=== PATIENT | female | born 1990 | race Caucasian/White ===

== ENCOUNTER → 2017-05-18 | Outpatient (CLI) | payer OTHER ==
--- NOTE | 2017-05-18 22:36 | EKG REPORT ---
SEVERITY:- NORMAL ECG - SINUS RHYTHM : Confirmed by: Babak Chisholm 18-May-2017 22:35:25
== END ==
LOC: OD 10:44
PROVIDERS: ATTEND Advanced Practice Midwife
DX: Z34.82 Encounter for supervision of other normal pregnancy, second trimester (principal); R42 Dizziness and giddiness
CPT/HCPCS: 93005; 93010

== ENCOUNTER 2018-09-17 20:56 | Inpatient (IN) | payer OTHER ==
[2018-09-17] MEDS ORDERED: OXYTOCIN/NORMAL SALINE 20 UNIT/1,000 ML RTUINJ ONE (21:21)
[2018-09-17] MEDS ORDERED: LIDOCAINE 1% INJ-PF (10 MG/ML) 30 ML SDV ONE (21:21)
[2018-09-17] MEDS ORDERED: OXYTOCIN 10 UNIT/ML VIAL ONE (21:21)
[2018-09-17] MEDS ORDERED: MISOPROSTOL 0.2 MG TABLET ONE (21:21)
[2018-09-17 22:13] LABS: ABSOLUTE BASOPHILS # (AUTO) 0.1 10^3/uL (0.0-0.2); ABSOLUTE EOSINOPHILS # (AUTO) 0.2 10^3/uL (0.0-0.6); ABSOLUTE LYMPHOCYTES (AUTO) 2.8 10^3/uL (0.5-4.7); ABSOLUTE MONOCYTES (AUTO) 1.2 10^3/uL (0.1-1.4); ABSOLUTE NEUT (AUTO) 13.5 10^3/uL (1.7-8.2); BASOPHILS % (AUTO) 0.5 % (0-2); EOSINOPHILS % (AUTO) 0.9 % (0-6); HEMATOCRIT 29.2 % (36.0-47.0); HEMOGLOBIN 9.6 g/dL (12.0-15.5); LYMPHOCYTES % (AUTO) 15.7 % (13-45); MEAN CORPUSCULAR HEMOGLOBIN 26.8 pg (27.0-33.4); MEAN CORPUSCULAR VOLUME 81 fl (80-97); PLATELET COUNT 374 10^3/uL (150-450); RED BLOOD COUNT 3.59 10^6/uL (3.72-5.28); RED CELL DISTRIBUTION WIDTH 16.7 % (11.5-14.0); SEGMENTED NEUTROPHILS % (AUTO) 75.9 % (42-78); TOTAL CELLS COUNTED % (AUTO) 100 %; WHITE BLOOD COUNT 17.8 10^3/uL (4.0-10.5)
[2018-09-17] MEDS ORDERED: EPHEDRINE SULFATE INJ 50 MG/1 ML AMPULE ONE (22:13)
[2018-09-17] MEDS ORDERED: FENTANYL/BUPIVACAINE/NS/PF 300 MCG/150 ML RTUINJ EPI ONE (22:14)
[2018-09-17] MEDS ORDERED: BUPIVACAINE HCL 0.25 % INJ/PF (2.5 MG/1 ML) 30 ML VIAL ONE (22:14)
[2018-09-17 22:16] LABS: APPEARANCE,URINE CLOUDY; BILIRUBIN,URINE NEGATIVE (NEGATIVE); COLOR,URINE YELLOW; GLUCOSE, URINE NEGATIVE (NEGATIVE); KETONES,URINE NEGATIVE (NEGATIVE); LEUKOCYTE ESTERASE,URINE SMALL (NEGATIVE); NITRITE,URINE NEGATIVE (NEGATIVE); PROTEIN,URINE NEGATIVE (NEGATIVE); URINE SPECIFIC GRAVITY 1.006; UROBILINOGEN,URINE NEGATIVE mg/dL (<2.0)
[2018-09-17 22:31] LABS: URINE AMPHETAMINES SCREEN NEGATIVE; URINE BARBITURATES SCREEN NEGATIVE; URINE BENZODIAZEPINES SCREEN NEGATIVE; URINE COCAINE SCREEN NEGATIVE; URINE MARIJUANA (THC) SCREEN NEGATIVE; URINE METHADONE SCREEN NEGATIVE; URINE PHENCYCLIDINE SCREEN NEGATIVE
--- NOTE | 2018-09-18 07:08 | Admission Physical ---
Datetime Report Generated by CPN: 09/18/2018 07:08 CURRENT ADMISSION Chief Complaint: Uterine Contractions Indication for Induction: Not Applicable Admit Impression : Term, Intrauterine Admit Plan: Initiate Labor Protocol ALLERGIES Medication Allergies: Yes Medication Allergies: latex (09/17/2018), advair OBSTETRICAL HISTORY EDC: 09/26/2018 00:00 : 6 Para: 2 Gestational Diabetes: No Rh Sensitization: No Incompetent Cervix: No ZEYAD: No Infertility: No ART Treatment: No Uterine Anomaly: No IUGR: No Hx Previous C/S: No Macrosomia: No Hx Loss/Stillborn: No PIH: No Hx : No Placenta Previa/Abruption: No Depression/PP Depression: No PTL/PROM: No Post Hemorrhage: No Obstetrical History Comments: G1 G2 G3 G4 G5 G6- current SEE RECORDS Alcohol: No Marijuana : No Cocaine: No Other Illicit Drugs: No Cigarettes: Current Everyday Smoker. [id number] Cigarette Frequency: 5 - 10 per day Advised to Stop: Yes MEDICAL HISTORY Diabetes: No Blood Transfusion: No Pulmonary Disease (Asthma, TB): Yes Breast Disease: No Hypertension: No Retail Operations Specialist Surgery: No Heart Disease: No Hosp/Surgery: No Autoimmune Disorder: No Anesthetic Complications: No Kidney Disease: No Abnormal Pap Smear: No Neuro/Epilepsy: No Psychiatric Disorders: No Other Medical Diseases: No Hepatitis/Liver Disease: No Significant Family History: No Varicosities/Phlebitis: No Trauma/Violence : No Thyroid Dysfunction: No Medical History Comments: history of asthma INFECTIOUS HISTORY Gonorrhea: No Genital Herpes: No Chlamydia: No Tuberculosis: No Syphilis: No Hepatitis: No HIV/AIDS Exposure: No Rash or Viral Illness: No HPV: No PHYSICAL EXAM General: Normal HEENT: Normal Neurologic: Normal Thyroid: Normal Heart: Normal Lungs: Normal Breast: Deferred Back: Normal Abdomen: Normal Genitourinary Exam: Normal Extremities: Normal DTRs: Normal Pelvic Type: Adequate FETUS A EGA: 38.6 PLANS FOR LABOR AND DELIVERY Labor and Delivery: Plan Pain Management: Epidural Feeding Preference: Formula Benefit of Breast Feed Discussed: Yes Circumcision: Yes INFORMED CONSENT Signature: with User ID: [email or web address]
[2018-09-18] MEDS ORDERED: MEASLES,MUMPS&RUBELLA VACC/PF 0.5 ML VIAL SUBCUT PRN (07:57)
[2018-09-18] MEDS ORDERED: PROMETHAZINE HCL INJ 25 MG/1 ML VIAL IV PRN (07:57)
[2018-09-18] MEDS ORDERED: DIPHENHYDRAMINE HCL 25 MG CAPSULE PO PRN (07:57)
[2018-09-18] MEDS ORDERED: DIPH/PERTUSS(ACELL)/TETANUS VAC/PF 0.5 ML SYR (>=10YO) IM PRN (07:57)
[2018-09-18] MEDS ORDERED: PROMETHAZINE HCL 25 MG TABLET PO PRN (07:57)
[2018-09-18] MEDS ORDERED: NA PHOS,M-B/NA PHOS,DI-BA (ADULT) 133 ML ENEMA PR PRN (07:57)
[2018-09-18] MEDS ORDERED: ZOLPIDEM TARTRATE 5 MG TABLET PO PRN (07:57)
[2018-09-18] MEDS ORDERED: PSEUDOEPHEDRINE HCL 30 MG TABLET PO PRN (07:57)
[2018-09-18] MEDS ORDERED: ACETAMINOPHEN 650 MG SUPP.RECT PR PRN (07:57)
[2018-09-18] MEDS ORDERED: OXYTOCIN/NORMAL SALINE 20 UNIT/1,000 ML RTUINJ IV PRN (07:57)
[2018-09-18] MEDS ORDERED: PROMETHAZINE HCL 25 MG SUPP.RECT PR PRN (07:57)
[2018-09-18] MEDS ORDERED: BENZOCAINE/MENTHOL AEROSOL SPRAY 56 ML TOP PRN (07:57)
[2018-09-18] MEDS ORDERED: MAGNESIUM HYDROXIDE SUSP 30 ML UDCUP PO PRN (07:57)
[2018-09-18] MEDS ORDERED: GLYCERIN/WITCH HAZEL LEAF 1 EACH MED..WIPE TP PRN (07:57)
[2018-09-18] MEDS ORDERED: DIBUCAINE 1% OINTMENT 56 GM TP PRN (07:57)
[2018-09-18] MEDS ORDERED: ACETAMINOPHEN WITH CODEINE #3 TABLET ONE (08:25)
[2018-09-18] MEDS ORDERED: IBUPROFEN 800 MG TABLET ONE (08:25)
[2018-09-18] MEDS ORDERED: MISOPROSTOL 0.2 MG TABLET ONE (08:26)
[2018-09-18] MEDS: ACETAMINOPHEN WITH CODEINE #3 TABLET PO PRN ×2 (08:28→21:01)
--- NOTE | 2018-09-18 09:39 | Delivery Summary ---
Del Sum A-C Datetime Report Generated by CPN: 09/18/2018 09:39 DELIVERY PERSONNEL DELIVERY PERSONNEL: [id number] Delivery Doctor:: Bob Rios MD Labor and Delivery Nurse:: Isabela Linares RNC Labor and Delivery Nurse:: Annette Yost RN Air Transportation Provider/TUBE BUILDER: Francesca White CNA II Additional Personnel: : Yi Rendon RN MATERNAL INFORMATION Delivery Anesthesia: Epidural Medications After Delivery: Pitocin Bolus-Please Comment; Cytotec 1000mcg Per Rectum/Vagina Meds After Delivery Comment: Pitocin 20 units/1000 ml NSS Maternal Complications: None LABOR SUMMARY EDC: 09/26/2018 00:00 No. Babies in Womb: 1 Attempted: No Labor Anesthesia: Epidural LABOR INFORMATION Reason for Induction: Not Applicable Onset of Labor: 09/18/2018 22:14 Complete Dilatation: 09/18/2018 07:19 Group B Beta Strep: negaitve MEMBRANES Membranes Rupture Method: Spontaneous Rupture of Membranes: 09/18/2018 07:16 Length of Rupture (hr): 0.50 Amniotic Fluid Color: Clear Amniotic Fluid Amount: Moderate Amniotic Fluid Odor: Normal STAGES OF LABOR Stage 1 hr: -14 Stage 1 min: -55 Stage 2 hr: 0 Stage 2 min: 27 Stage 3 hr: -143 Stage 3 min: -54 Total Time in Labor hr: -158 Total Time in Labor min: -22 VAGINAL DELIVERY Episiotomy: None Laceration #1: None Laceration Extension #1: N/A Laceration Repair: Not Applicable CSECTION DELIVERY Primary Indication: N/A CSection Incidence: N/A Labor: N/A Elective: N/A CSection Incision: N/A BABY A INFORMATION Delivery Date/Time: 09/18/2018 07:46 Method of Delivery: Vaginal Born in Route : No : N/A Forceps: N/A Vacuum Extraction: N/A Shoulder Dystocia : No PRESENTATION/POSITION BABY A Presentation: Cephalic Cephalic Presentation: Vertex Vertex Position: Right Occipital Anterior Breech Presentation: N/A PLACENTA INFORMATION BABY A Placenta Delivery Time : 09/12/2018 07:52 Placenta Method of Delivery: Spontaneous Placenta Status: Delivered SCORES BABY A Heart Rate 1 min: >100 bpm Resp Effort 1 min: Good Cry Reflex Irritability 1 min: Cough or Sneeze or Pulls Away Muscle Tone 1 min: Active Motion Color 1 min: Blue/Pale Resuscitation Effort 1 min: Tactile Stimulation SCORE 1 MIN: 8 Heart Rate 5 min: >100 bpm Resp Effort 5 min: Good Cry Reflex Irritability 5 min: Cough or Sneeze or Pulls Away Muscle Tone 5 min: Active Motion Color 5 min: Body [place], Extremities Blue Resuscitation Effort 5 min: Tactile Stimulation SCORE 5 MIN: 9 INFORMATION BABY A Gestational Age at Delivery: 38.6 Gestational Status: Early Term- 37- 38.6 Weeks Outcome : Liveborn Infant Condition : Stable Sex: Male IDENTIFICATION BABY A Verification Date/Time: 09/18/2018 08:32 ID Band Number: [id number] Mother's Name Verified: Yes RN Verifying Infant: Sautry Additional Verifying Personnel: S Brown TUBE BUILDER WEIGHT/LENGTH BABY A Birthweight (gm): 4011 Weight (lb): 8 Weight (oz): 13 Length (in): 20.50 Length (cm): 52.07 CORD INFORMATION BABY A No. Cord Vessels: 3 Nuchal Cord : N/A Nuchal Cord- Other: Waist Cord Blood Taken: Yes-For Storage (Mom's Blood type +) Infant Suction: None ASSESSMENT BABY A Infant Complications: None Physical Findings at Delivery: Within Normal Limits Skin to Skin: Yes Transferred To: Remains with Mother SIGNATURES Signature: with User ID: [email or web address]
[2018-09-18] MEDS: SENNOSIDES/DOCUSATE 8.6-50 MG 1 EACH TABLET PO SCH (10:49)
[2018-09-18] MEDS: DOCUSATE SODIUM 100 MG CAPSULE PO SCH ×2 (10:49→18:01)
[2018-09-18] MEDS: FERROUS SULFATE 325 MG TABLET PO SCH ×2 (10:49→18:00)
[2018-09-18] MEDS: PRENATAL VITAMIN W DHA CAPSULE PO SCH (10:49)
[2018-09-18] MEDS: FAMOTIDINE 20 MG TABLET PO SCH ×2 (10:49→21:01)
[2018-09-18] MEDS: PANTOPRAZOLE SODIUM 20 MG TABLET.DR PO SCH (10:49)
[2018-09-18] MEDS: IBUPROFEN 800 MG TABLET PO SCH ×2 (14:31→21:01)
[2018-09-19] MEDS: ACETAMINOPHEN WITH CODEINE #3 TABLET PO PRN (01:07)
[2018-09-19] MEDS: IBUPROFEN 800 MG TABLET PO SCH ×3 (06:30→21:09)
[2018-09-19 06:37] LABS: HEMATOCRIT 27.8 % (36.0-47.0); HEMOGLOBIN 9.1 g/dL (12.0-15.5); MEAN CORPUSCULAR HEMOGLOBIN 26.7 pg (27.0-33.4); MEAN CORPUSCULAR HGB CONC 32.9 g/dL (32.0-36.0); MEAN CORPUSCULAR VOLUME 81 fl (80-97); PLATELET COUNT 353 10^3/uL (150-450); RED BLOOD COUNT 3.42 10^6/uL (3.72-5.28); RED CELL DISTRIBUTION WIDTH 16.5 % (11.5-14.0); WHITE BLOOD COUNT 18.2 10^3/uL (4.0-10.5)
[2018-09-19] MEDS: FAMOTIDINE 20 MG TABLET PO SCH ×2 (10:15→21:09)
[2018-09-19] MEDS: DOCUSATE SODIUM 100 MG CAPSULE PO SCH ×2 (10:15→18:21)
[2018-09-19] MEDS: FERROUS SULFATE 325 MG TABLET PO SCH ×2 (10:15→18:21)
[2018-09-19] MEDS: SENNOSIDES/DOCUSATE 8.6-50 MG 1 EACH TABLET PO SCH (10:15)
[2018-09-19] MEDS: PANTOPRAZOLE SODIUM 20 MG TABLET.DR PO SCH (10:15)
[2018-09-19] MEDS: PRENATAL VITAMIN W DHA CAPSULE PO SCH (10:15)
--- NOTE | 2018-09-19 11:51 | PDOC PROGRESS REPORT ---
Subjective-OB Progress Note for:: 09/19/18 - PP Day #1, doing well, A+, Rubella Immune, bottlefeeding. May want to go home later on today if possible Physical Exam (OB) Vital Signs: Temp Pulse Resp BP Pulse Ox 97.9 F 58 L 15 118/74 98 09/19/18 08:03 09/19/18 08:03 09/19/18 08:03 09/19/18 08:03 09/19/18 08:03 Intake & Output 09/18/18 09/19/18 09/20/18 06:59 06:59 06:59 Intake Total 240 Balance 240 Weight 83.4 kg - PIH/Pre-Eclampsia DTR's: 2 + Clonus: Negative Headache: Absent Epigastric Pain: No Visual Changes: No - Lochia Lochia Amount: Scant < 10 ml Lochia Color: Rubra/Red - Abdomen Description: Soft, Round Hernia Present: No Fundal Description: Firm, Midline Fundal Height: u/u - u/2 - Respiratory Respiratory Status: No respiratory distress - Abdominal Inspection: Normal Distension: No distension - Genitourinary Genitourinary Note: voiding - Extremities Upper extremity: Normal inspection Lower extremities: Normal inspection - Neurological Cognition: Normal Orientation: AAOx4 - Psychological Associated symptoms: Normal affect, Normal mood - Skin Skin Temperature: Warm Skin Moisture: Dry Objective-Diagnostic Laboratory: 09/19/18 06:15 09/19/18 06:15 WBC 18.2 H RBC 3.42 L Hgb 9.1 L Hct 27.8 L MCV 81 MCH 26.7 L MCHC 32.9 RDW 16.5 H Plt Count 353 Assessment and Plan(PN) - Assessment and Plan (1) Anemia, iron deficiency Qualifiers: Iron deficiency anemia type: other iron deficiency Qualified Code(s): D50.8 - Other iron deficiency anemias Is this a current diagnosis for this admission?: Yes (2) Depression Qualifiers: Depression Type: depression during Trimester: third trimester Qualified Code(s): O99.343 - Other mental disorders complicating , third trimester; F32.9 - Major depressive disorder, single episode, unspecified Is this a current diagnosis for this admission?: Yes (3) Vaginal delivery Is this a current diagnosis for this admission?: Yes - Time Spent with Patient Time with patient: Less than 15 minutes Medications reviewed and adjusted accordingly: Yes - Disposition Anticipated Discharge: Home Within: within 24 hours
[2018-09-20] MEDS: IBUPROFEN 800 MG TABLET PO SCH ×3 (06:40→13:13)
[2018-09-20 08:08] VITALS: BP 145/81
[2018-09-20] MEDS: FAMOTIDINE 20 MG TABLET PO SCH (09:23)
[2018-09-20] MEDS: PRENATAL VITAMIN W DHA CAPSULE PO SCH (09:23)
[2018-09-20] MEDS: FERROUS SULFATE 325 MG TABLET PO SCH (09:23)
[2018-09-20] MEDS: PANTOPRAZOLE SODIUM 20 MG TABLET.DR PO SCH (09:23)
[2018-09-20] MEDS: DOCUSATE SODIUM 100 MG CAPSULE PO SCH (09:23)
[2018-09-20] MEDS: SENNOSIDES/DOCUSATE 8.6-50 MG 1 EACH TABLET PO SCH (09:23)
--- NOTE | 2018-09-20 10:19 | PDOC PROGRESS REPORT ---
Subjective-OB Progress Note for:: 09/20/18 Subjective: Doing well, no c/o,ready to go home Physical Exam (OB) Vital Signs: Temp Pulse Resp BP Pulse Ox 97.8 F 66 16 145/81 H 98 09/20/18 07:44 09/20/18 07:44 09/20/18 07:44 09/20/18 07:44 09/20/18 07:44 Intake & Output 09/19/18 09/20/18 09/21/18 06:59 06:59 06:59 Intake Total 240 650 Balance 240 650 - PIH/Pre-Eclampsia DTR's: 2 + Clonus: Negative Headache: Absent Epigastric Pain: No Visual Changes: No - Lochia Lochia Amount: Scant < 10 ml Lochia Color: Rubra/Red - Abdomen Description: Soft, Round Hernia Present: No Fundal Description: Firm Fundal Height: u/u - u/2 Objective-Diagnostic Laboratory: 09/19/18 06:15 Assessment and Plan(PN) - Assessment and Plan (1) Bipolar 1 disorder Is this a current diagnosis for this admission?: Yes (2) Anemia, iron deficiency Qualifiers: Iron deficiency anemia type: other iron deficiency Qualified Code(s): D50.8 - Other iron deficiency anemias Is this a current diagnosis for this admission?: Yes (3) Vaginal delivery Is this a current diagnosis for this admission?: Yes (4) Depression Qualifiers: Depression Type: depression during Trimester: third trimester Qualified Code(s): O99.343 - Other mental disorders complicating , third trimester; F32.9 - Major depressive disorder, single episode, unspecified Is this a current diagnosis for this admission?: Yes - Time Spent with Patient Time with patient: Less than 15 minutes Medications reviewed and adjusted accordingly: Yes - Disposition Anticipated Discharge: Home Within: within 24 hours
--- NOTE | 2018-09-20 10:23 | PDOC DISCHARGE SUMMARY ---
Final Diagnosis Discharge Date: 09/20/18 - Final Diagnosis (1) Bipolar 1 disorder Is this a current diagnosis for this admission?: Yes (2) Anemia, iron deficiency Is this a current diagnosis for this admission?: Yes (3) Vaginal delivery Is this a current diagnosis for this admission?: Yes Discharge Data - Discharge Medication Prescriptions: Ferrous Sulfate [Feosol 325 mg Tablet] 325 mg PO BID #60 tablet Ibuprofen [Motrin 800 mg Tablet] 800 mg PO Q8 #60 tablet Home Medications: Pantoprazole Sodium [Protonix] 20 mg PO DAILY 09/17/18 95/Iron Fum/Folic/Dha [ + Dha Combo Pack] 1 each PO DAILY 09/17/18 Ferrous Sulfate [Feosol 325 mg Tablet] 325 mg PO BID #60 tablet 09/20/18 Ibuprofen [Motrin 800 mg Tablet] 800 mg PO Q8 #60 tablet 09/20/18 Gestational Age: 38.6 Reason(s) for Admission: Onset of Labor Procedures: Ultrasound Intrapartum Procedure(s): Spontaneous Vaginal Delivery - Data Baby 1 Male at 1 minute: 8 at 5 minutes: 9 Weight: 3.997 kg Home with Mother: Yes Complications: No - Diagnosis Test Laboratory: Temp Pulse Resp BP Pulse Ox 97.8 F 66 16 145/81 H 98 09/20/18 07:44 09/20/18 07:44 09/20/18 07:44 09/20/18 07:44 09/20/18 07:44 09/17/18 09/17/18 09/19/18 21:50 21:50 06:15 RBC 3.59 L 3.42 L Hgb 9.6 L 9.1 L Hct 29.2 L 27.8 L Urine Opiates Screen NEGATIVE - Discharge information/Instructions Discharge Activity: Activity As Tolerated, No Lifting Over 10 Pounds, No Lifting/Push/Pulling, Pelvic Rest Discharge Diet: As Tolerated, Regular Disposition: HOME, SELF-CARE Follow up with: [facility] in: 2, Weeks
== END 2018-09-20 16:15 | disposition home or self-care (01) | DRG 807 ==
LOC: LC 20:56 → LR 21:21 → 2S 09-18 10:27
PROVIDERS: ADMIT Obstetrics & Gynecology Gynecology; ATTEND Obstetrics & Gynecology Gynecology
PROC: 10E0XZZ Delivery of Products of Conception, External Approach (ICD-10-PCS; principal; 2018-09-18)
DX: O99.334 Smoking (tobacco) complicating childbirth (principal); Z37.0 Single live birth; F17.210 Nicotine dependence, cigarettes, uncomplicated; Z3A.38 38 weeks gestation of pregnancy; O99.52 Diseases of the respiratory system complicating childbirth; J45.909 Unspecified asthma, uncomplicated; O99.344 Other mental disorders complicating childbirth; F31.9 Bipolar disorder, unspecified; O99.02 Anemia complicating childbirth; D50.9 Iron deficiency anemia, unspecified; Z91.040 Latex allergy status
CPT/HCPCS: 36415; 80307; 81005; 85025; 85027; 86592; 86850; 86900; 86901; J2590; J3010; J3490